=== PATIENT | male | born 1985 | race Caucasian/White ===

== ENCOUNTER 2019-09-22 20:30 | Emergency (ER) | payer MEDICAID ==
[~2019-09-22] VITALS: Ht 175.3 cm; Wt 75.0 kg
[2019-09-23] MEDS ORDERED: CEFTRIAXONE SODIUM 250 MG/VIAL IM ONE (01:00)
[2019-09-23] MEDS ORDERED: AZITHROMYCIN 500 MG TABLET PO ONE ×2 (01:00→01:15)
[2019-09-23] MEDS ORDERED: LIDOCAINE HCL 1% 20ML VIAL (Pyxis) INJ INFIL ONE (01:00)
[2019-09-23 01:23] VITALS: BP 114/67
== END 2019-09-23 01:24 | disposition home or self-care (01) ==
LOC: ER 20:30
DX: Z20.2 Contact with and (suspected) exposure to infections with a predominantly sexual mode of transmission (principal); F32.9 Major depressive disorder, single episode, unspecified; J45.909 Unspecified asthma, uncomplicated
CPT/HCPCS: 99283; J0696